=== PATIENT | female | born 1995 | race Two or more races ===

== ENCOUNTER → 2024-07-28 | Outpatient (CLI) | payer MEDICAID, SELFPAY ==
--- NOTE | 2024-07-28 16:36 | XR_ITS ---
Examination: Cervical spine 3 views Technique one AP lateral coned AP odontoid cervical spine 3 views Exam date and time: 08/28/2024 1648 hrs. Indications: Work injury to the neck 6 years ago with neck pain and weakness in the upper extremities Findings: Reversal normal cervical lordosis No cervical fracture Intact odontoid No definite cervical disc narrowing As clinically warranted, MRI cervical spine without contrast follow-up would best assess for soft tissue disc protrusion producing radicular arm symptoms Impression: No cervical fracture or significant cervical disc narrowing
== END | disposition home or self-care (01) ==
LOC: CDIM 16:27
PROVIDERS: Referring Provider Chiropractor; Visit Provider Chiropractor
DX: M54.2 Cervicalgia (principal)
CPT/HCPCS: 72040

== ENCOUNTER → 2024-10-18 | Outpatient (CLI) | payer MEDICAID, SELFPAY ==
--- NOTE | 2024-10-18 15:26 | XR_ITS ---
Examination: Foot bilateral, 5 views Technique: Bilateral AP views both feet, right oblique left oblique, right lateral left lateral foot total 5 views Date and time of exam: October 10, 2024 1530 hours INDICATIONS: Bilateral foot pain beginning 8 months ago. FINDINGS: Early osteoarthritis left first metatarsophalangeal joint Moderate left mild right hallux valgus bunion deformities No fractures No cortical bone destruction IMPRESSION: Moderate left mild right hallux valgus bunion deformities Early osteoarthritis left first metatarsophalangeal joint
== END | disposition home or self-care (01) ==
PROVIDERS: Referring Provider Podiatrist; Visit Provider Podiatrist
DX: M20.12 Hallux valgus (acquired), left foot (principal); M21.611 Bunion of right foot; M19.072 Primary osteoarthritis, left ankle and foot
CPT/HCPCS: 73630

== ENCOUNTER → 2025-03-22 | Outpatient (CLI) | payer MEDICAID, SELFPAY ==
--- NOTE | 2025-03-22 15:05 | XR_ITS ---
Examination: MRI left wrist without contrast Date and time of exam: March 22, 2025, 1530 hours INDICATIONS: Patient fell October 2024 with injury of the wrist, persistent wrist pain Technique: Multiple MRI axial and sagittal sections left wrist Sagittal T2-weighted images, TR 3500, TE 118 T1 weighted transverse sections, TR 688 T8.5, T2-weighted sagittal sections T1 weighted sagittal sections TR 621, TE 30 T2 axial sections, TR 4, 190, TE 84. Findings: Distal radius distal ulna intact No occult fracture or bone contusion marrow edema or avascular necrosis Triangular fibrocartilage intact Carpal bones demonstrate homogeneous signal No scapholunate traumatic separation Flexor tendons are intact with normal nonenlarged median nerve Extensor tendons intact no tendinitis 7 x 4 x 8 mm ganglion cyst palmar to the ulna Mild osteoarthritis first carpometacarpal joint IMPRESSION: No occult fracture or bone contusion marrow edema or avascular necrosis Intact triangular fibrocartilage Negative for flexor or extensor tendinitis 7 x 4 x 8 mm ganglion cyst palmar to the ulna
== END | disposition home or self-care (01) ==
PROVIDERS: Referring Provider Nurse Practitioner; Visit Provider Nurse Practitioner
DX: M67.432 Ganglion, left wrist (principal)
CPT/HCPCS: 73221

== ENCOUNTER → 2025-04-23 | Outpatient (CLI) | payer MEDICAID, SELFPAY ==
--- NOTE | 2025-04-23 07:30 | XR_ITS ---
Examination: MRI right foot, without contrast Date and time of exam: April 23, 2025, 0734 hours INDICATIONS: Foot pain beginning 8 months ago Technique: Multiple axial sagittal and coronal images of the right foot Have been obtained with the Siemens high-resolution 1.5 [employer] MRI scanner. Images obtained include T2-weighted fat-suppressed sagittal sections, TR 3500, TE 46, T2 weighted coronal fat suppressed images, TR 3050, TE 84, T2-weighted transverse fat suppressed images, TR 3260, TE 63, proton density transverse images, TR 4720 TE 46, and T1 weighted coronal images, TR 560, TE 13. Findings: Mild hallux valgus bunion deformity Intact Achilles tendon Mild plantar fasciitis Negative for sinus Tarsi syndrome No focal fracture or bone contusion or marrow edema No cortical bone destruction Negative for osteomyelitis No soft tissue abscess IMPRESSION: Mild bunion deformity No occult fracture, bone contusion, marrow edema Negative for osteomyelitis
== END | disposition home or self-care (01) ==
LOC: SMRI 07:19
PROVIDERS: PCP Family Medicine; Referring Provider Internal Medicine; Visit Provider Internal Medicine
DX: M21.611 Bunion of right foot (principal)
CPT/HCPCS: 73718